=== PATIENT | female | born 1965 | race Caucasian/White ===

== ENCOUNTER 2018-09-26 07:25 | Day surgery (SDC) | payer OTHER ==
[~2018-09-26] VITALS: Ht 167.6 cm; Wt 59.7 kg
[2018-09-26 09:36] VITALS: Ht 167.6 cm; Wt 59.7 kg
[2018-09-26] MEDS ORDERED: PROPOFOL 20 ML ONE (10:29)
[2018-09-26] MEDS ORDERED: LIDOCAINE 100 MG SYRINGE ONE (10:29)
--- NOTE | 2018-09-26 10:29 | PREAC ---
Date/Time of Note Date/Time of Note DATE: 09/26/18 TIME: 10:28 Anesthesia Eval and Record Evaluation Time Pre-Procedure Interview DATE: 09/26/18 TIME: 10:28 Age 53 Sex female NPO: 8 hrs Preoperative diagnosis SCREENING Planned procedure COLONOSCOPY Past Medical History Past Medical History: None Surgery & Anesthesia Issues No known issue Meds Anticoagulation: No Beta Vira within 24 hr: No Reason Beta Vira not given: Pt. not on B-Vira Reported Medications [None] No Conflict Check 09/26/18 Meds reviewed: Yes Allergies Coded Allergies: Sulfa (Sulfonamide Antibiotics) (Verified Allergy, Severe, HIVES/RASH, 09/26/18) Allergies Reviewed: Yes Labs/Studies Labs Reviewed: Reviewed by anesthesiologist test: N/A Pre-procedure Exam Airway: Adequate mouth opening, Adequate thyromental dist Mallampati: Mallampati II Teeth: Normal Lung: Normal Heart: Normal ASA Physical Status ASA physical status: 1 Emergency: None Planned Anesthetic General/MAC: MAC Planned Pain Management Parenteral pain med Pre-operative Attestations Prior to commencing anesthesia and surgery, the patient was re-evaluated, there was verification of: *The patient's identity *The results of appropriate recent lab work and preoperative vital signs *The above evaluation not changing prior to induction *Anesthetic plan, risk benefits, alternative and complications discussed with patient/family; questions answered; patient/family understands, accepts and wishes to proceed. Chris Parker M.D. Sep 26, 2018 10:29
--- NOTE | 2018-09-26 10:55 | PAC ---
Date/Time of Note Date/Time of Note DATE: 09/26/18 TIME: 10:54 Post-Anesthesia Notes Post-Anesthesia Note Last documented vital signs HR 75 RR 14 BP 117/68 T 98 Activity: WNL Respiratory function: WNL Cardiovascular function: WNL Mental status: Baseline Pain reasonably controlled: Yes Hydration appropriate: Yes Nausea/Vomiting absent: Yes Chris Parker M.D. Sep 26, 2018 10:55
== END 2018-09-26 14:50 | disposition home or self-care (01) ==
LOC: GIL 07:25
PROVIDERS: ATTEND Internal Medicine Gastroenterology
DX: Z12.11 Encounter for screening for malignant neoplasm of colon (principal); K64.8 Other hemorrhoids
CPT/HCPCS: 45378; 88305; J2001; Z7610